=== PATIENT | male | born 1995 | race Caucasian/White ===

== ENCOUNTER 2022-03-05 02:57 | Emergency (ER) | payer SELFPAY | END 2022-03-05 05:15 | disposition home or self-care (01) | LOC: JP.ED 02:57 | DX: S93.492A Sprain of other ligament of left ankle, initial encounter (principal); S39.012A Strain of muscle, fascia and tendon of lower back, initial encounter; F17.210 Nicotine dependence, cigarettes, uncomplicated; Z79.899 Other long term (current) drug therapy; W10.9XXA Fall (on) (from) unspecified stairs and steps, initial encounter | CPT/HCPCS: 72100; 73590-LT; 73610-LT; 99283 ==